=== PATIENT | female | born 1945 | race Caucasian/White ===

== ENCOUNTER 2017-01-20 22:43 | Emergency (ER) | payer MEDICARE, OTHER ==
[~2017-01-20] VITALS: Ht 162.6 cm; Wt 81.6 kg
[~2017-01-20 22:43] MED LIST: ALBUTEROL2 PUFFS/17 IN; ALLOPURINOL100 MG PO; BAYER ASPIRIN C81 MG PO; CLARITIN 10MG T10 MG PO; FUROSEMIDE 20MG20 MG PO; ISOSORBIDE MONO30 MG PO; KEFLEX 500MG.500 MG PO; LISINOPRIL/HCTZ1 TA3 FT; MEDROL 4MG. DOSE4 MG PO; MUCINEX1200 MG PO; NORVASC 10MG. T10 MG PO; PATANOL 5 ML5 ML OP; PERCOCET 325 MG1 TA3 PO; PLAVIX 75MG TAB75 MG PO; RANITIDINE75 MG PO; SALMETEROL-F28 PUFF1 IN; TYLENOL325 MG PO; VENTOLIN H0.09 MG/Ac IH
[2017-01-20] MEDS ORDERED: CIPROFLOXACIN500 M2 PO (22:54)
[2017-01-20] MEDS ORDERED: METRONIDAZOLE500 M2 PO (22:55)
--- OUTSIDE RECORDS SUMMARY | 2017-01-20 23:01 | External Medical Summary Rpt | CCD ---
Author Author Conduent Organization Con[employer] Address Unknown Phone Unavailable Purpose Continuity of Care Document - through 2016
--- OUTSIDE RECORDS SUMMARY | 2017-01-20 23:01 | External Medical Summary Rpt | CCD ---
Author Author , ERIC REYES Address Unknown Phone [email or web address] Support Name Relationship Address Phone FREIDA Next Of Kin [address]SON [phone] [facility] [address] Purpose Continuity of Care Document - 11-10-2012 through 2016 Problems Code Diagnosis DOS Provider Status N18.3 CHRONIC KIDNEY DISEASE, STAGE 3 (MODERATE) Z01.818 ENCOUNTER FOR OTHER PREPROCEDUR AL EXAMINATION Allergies, Adverse Reactions, Alerts Type Drug Allergy Adverse Reaction to Substance Substance Reaction Severity Penicillin P-[id number]-EDBN/THROAT Severe Medications Na ND Rx Da Fi Fi Am Da Di Ph RX Ph St me C No te ll ll ou ys ag ar # ys at rm s nt no ma ic us Or Da si cy ia de te s n re d NI 00 09 0 No TR 28 -2 O- 10 0- Lo BI 32 20 ng D 60 13 er 2% 8 Ac OI ti NT ve ME NT Vital Signs 11-10-2012 13:15 Name Value Interpretat Reference Comment ion Range Body 98.4 [degF] Temperature BP 75 mm[Hg] Diastolic BP Systolic 161 mm[Hg] Heart 103 /min Rate/Pulse O2% 95 % Respiratory 20 /min Rate 11-10-2012 13:14 Name Value Interpretat Reference Comment ion Range BP 81 mm[Hg] Diastolic BP Systolic 156 mm[Hg] Heart 102 /min Rate/Pulse O2% 91 % Respiratory 18 /min Rate Encounters Encounter Start End Date Code Location Performer Type Date Emergency KENNETH Elliott MD (ER) 3 12:31 3 13:25 [facility]
--- OUTSIDE RECORDS SUMMARY | 2017-01-20 23:01 | External Medical Summary Rpt | CCD ---
Author Author , ERIC REYES Address Unknown Phone [email or web address] Support Name Relationship Address Phone FREIDA Next Of Kin [address] [phone] [facility] [place] [address] Purpose Continuity of Care Document - 11-10-2012 through 2016 Problems Code Diagnosis DOS Provider Status N18.3 CHRONIC KIDNEY DISEASE, STAGE 3 (MODERATE) Z01.818 ENCOUNTER FOR OTHER PREPROCEDUR AL EXAMINATION Allergies, Adverse Reactions, Alerts Type Drug Allergy Adverse Reaction to Substance Substance Reaction Severity Penicillin D-VKEQYY-NSXO/THROAT Severe Medications Na ND Rx Da Fi [...] Elliott MD (ER) 3 12:31 3 13:25 [facility]
--- OUTSIDE RECORDS SUMMARY | 2017-01-20 23:02 | External Medical Summary Rpt | CCD ---
Demographics Preferred Language Irish Marital Status Unknown Pentecostal Affiliation Unknown Race Unknown Ethnic Group Unknown Author Author , ERIC REYES Address Unknown Phone Immunization Unable to retrieve immunization data due to connection failure with Immunization Registry. Please try again later.
--- OUTSIDE RECORDS SUMMARY | 2017-01-20 23:02 | External Medical Summary Rpt ---
Author Author [employer]IC Production, ERIC [employer] Organization [employer] Address Unknown Phone Unavailable Results Basic metabolic panel in Blood Observa Value Referen Units Interpr Notes Date tion ce etation Range Urea 7 - 18 mg/dL High No July 21 nitrogen informati 2016 9:27 [Mass/vol on in AM ume] in source Serum or data Plasma Calcium 8.5 - mg/dL Normal No July 21 [Mass/vol 10.1 informati 2016 9:27 ume] in on in AM Serum or source Plasma data Chloride 98 - 107 mmoL/L Normal No July 21 [Moles/vo informati 2016 9:27 lume] in on in AM Serum or source Plasma data Carbon 21.0 - mmoL/L Low No July 21 dioxide, 32.0 informati 2016 9:27 total on in AM [Moles/vo source lume] in data Serum or Plasma Creatinin 0.55 - mg/dL High No July 21 e 1.02 informati 2016 9:27 [Mass/vol on in AM ume] in source Serum or data Plasma Estimated 59- ML/MIN Low REFERENCE July 21 RANGE: 2017 9:27 glomerula >60 AM r ML/MIN/1. filtratio 73 SQUARE n rate METERSIf (GF this patient is -A merican, then multiply theresult by 1.210. Glucose 74 - 106 mg/dL High No July 21 [Mass/vol informati 2017 9:27 ume] in on in AM Serum or source Plasma data Potassium 3.5 - 5.1 mmoL/L Normal No July 21 informati 2016 9:27 [Moles/vo on in AM lume] in source Serum or data Plasma Sodium 136 - 145 mmoL/L Normal No July 21 [Moles/vo informati 2017 9:27 lume] in on in AM Serum or source Plasma data CBC W Auto Differential panel in Blood Observa Value Referen Units Interpr Notes Date tion ce etation Range Basophils 0 - 0.2 K/MM3 Normal No July 21 informati 2016 9:27 [#/volume on in AM ] in source Blood by data Automated count Basophils 0.1 - 2.0 % Normal No July 21 informati 2016 9:27 leukocyte on in AM s in source Blood by data Automated count Eosinophi 0.0 - 0.4 K/mm3 High No July 21 ls informati 2016 9:27 [#/volume on in AM ] in source Blood by data Automated count Eosinophi 0.1 - % Normal No July 21 ls/100 12.0 informati 2016 9:27 leukocyte on in AM s in source Blood by data Automated count Granulocy 1.8 - 7.8 K/mm3 High No July 21 ronda informati 2016 9:27 [#/volume on in AM ] in source Blood by data Automated count Granulocy 37.0 - % Normal No July 21 ronda/100 80.0 informati 2016 9:27 leukocyte on in AM s in source Blood by data Automated count Hematocri 37.0 - % Normal No July 21 t [Volume 47.0 informati 2016 9:27 on in AM Fraction] source of Blood data Hemoglobi 12.2 - g/dL Low No July 21 n 16.2 informati 2016 9:27 [Mass/vol on in AM ume] in source Blood data Lymphocyt 0.7 - 4.5 K/mm3 Normal No July 21 es informati 2016 9:27 [#/volume on in AM ] in source Unspecifi data ed specimen by Automated count Lymphocyt 10 - 50.0 % Normal No July 21 es informati 2016 9:27 [#/volume on in AM ] in source Unspecifi data ed specimen by Automated count Erythrocy 27 - 31.2 pg Normal No July 21 te mean informati 2016 9:27 corpuscul on in AM ar source hemoglobi data n [Entitic mass] Erythrocy 31.8 - g/dl Low No July 21 te mean 35.4 informati 2016 9:27 corpuscul on in AM ar source hemoglobi data n concentra tion [Mass/vol ume] by Automated count Erythrocy 82.2 - fl Normal No July 21 te mean 97.8 informati 2016 9:27 corpuscul on in AM ar volume source [Entitic data volume] by Automated count Monocytes 0.1 - 1.0 K/mm3 Normal No July 21 informati 2017 9:27 [#/volume on in AM ] in source Blood by data Automated count Monocytes 1.7 - 9.3 % Normal No July 21 / informati 2017 9:27 leukocyte on in AM s in source Blood by data Automated count Platelet 7.4 - fl Low No July 21 mean 10.4 informati 2017 9:27 volume on in AM [Entitic source volume] data in Blood by Automated count Platelets 142 - 424 K/mm3 Normal No July 21 informati 2017 9:27 [#/volume on in AM ] in source Blood data Erythrocy 4.2 - 5.4 M/mm3 Low No July 21 ronda informati 2017 9:27 [#/volume on in AM ] in source Amniotic data fluid Erythrocy 11.5 - % Normal July 21 te 17.5 informati 2017 9:27 distribut on in AM ion width source [Entitic data volume] by Automated count Leukocyte 4.8 - K/MM3 High No July 21 s 10.8 informati 2016 9:27 [#/volume on in AM ] in source Blood data
--- OUTSIDE RECORDS SUMMARY | 2017-01-20 23:02 | External Medical Summary Rpt | CCD ---
Demographics Preferred Language Romansh Marital Status Unknown Quaker Affiliation Unknown Race Unknown Ethnic Group Unknown Author Author , ERIC REYES Address Unknown Phone Immunization Unable to retrieve immunization data due to connection failure with Immunization Registry. Please try again later.
[2017-01-20 23:04] LABS: LYMPH # 2.6 K/mm3 (0.7-4.5); LYMPH % 11.9 % (10-50.0)
[2017-01-20 23:08] LABS: HEMOGLOBIN 13.4 g/dL (12.2-16.2)
[2017-01-20 23:39] LABS: NEUTROPHILS 80 % (42-76)
--- NOTE | 2017-01-20 23:50 | Emergency Room Report ---
History of Present Illness Time Seen by [id number] Presenting Problem in Triage Pt arrived:Walked Presenting Problem:C/O ABDOMINAL PAIN FOR [address] CORDON AND DX WITH DIVERTICULITIS. ON Tuesday01/15/17 Onset of symptoms date/time:/ or onset unknown for:MEDICAL HX UNKNOWN Treatment Prior to Arrival: [employer]SEL[employer] Provided by: Sepsis Risk Assessment: Temp: 98.4 B/P: 114/92 MAP: 99 Pulse: 127 Resp: 20 Recent fever? N Clinical Suspician of Infection? N Mental Status: 1 - Regular (Normal Baseline) Sepsis Risk:Possible Sepsis Risk Have you (or family members/close friends) recently traveled outside the [place]? N If Yes, where/when: Have you had exposure to infectious disease within the past month? N TB? Other? Specify: Source patient, RN notes reviewed, family, old records Exam Limitations no limitations Comment pt with abd pain since last weekend - pt with abx and has abd pain with crampy pain with nonbldy diarrhea with no fever - worse tonight Cardiac Chest Pain Chest pain indicative of cardiac No Timing/Duration this evening Severity moderate ALLERGIES Coded Allergies: Penicillins (SWELLING 08/19/16) Sulfa (Sulfonamide Antibiotics) (ITCHING 08/19/16) Home Medications Reported Medications AMLODIPINE BESYLATE (Norvasc) 10 MG PO DAILY Lisinopril & Hctz (Lisinopril-Hctz 10-12.5 MG Tab) 1 TAB FT DAILY CLOPIDOGREL BISULFATE (PLAVIX) 75 MG PO DAILY Aspirin (Uma Chewable Aspirin) 81 MG PO DAILY Albuterol (Albuterol Inhaler 17GM) 2 PUFFS IN BID #1 INH Salmeterol 50/Fluticasone 500 (Advair 500-50 Diskus) 1 PUFF IN BID Acetaminophen (Tylenol) 650 TAB PO NEEDED MISCELLANEOUS (UNKNOWN MEDICATION) RANITIDINE HCL (Ranitidine HCl) 75 MG PO QHS Isosorbide Mononitrate (Isosorbide Mononitrate ER) 30 MG PO DAILY #90 Furosemide (Furosemide) 20 MG PO DAILY #90 OLOPATADINE HCL (Patanol 5 Ml) 5 ML OP DAILY #15 CIPROFLOXACIN HCL (Ciprofloxacin HCl) 500 MG PO BID #20 Metronidazole 500 MG PO Q 8 HOURS #30 Albuterol Sulfate (Ventolin Hfa) 0.09 MG IH PRN PRN BREATHING #54 Allopurinol 100 MG PO DAILY #90 Loratadine (Claritin 10MG) 10 MG PO DAILY #90 History Medical History General CAD? Yes Angina: No OR: No Hypertension? Yes Hyperlipidemia? Yes CHF? No DVT? No PE? No COPD? Yes Asthma? Yes Anemia? No GERD? No Gastric ulcers? No GI Bleed? No Hernia? No Thyroid Problems? No Hypothyroidism? No CVA? No Seizures? No Diabetes? No Renal Insuffiency? Yes End Stage Renal Disease? No UTI? Yes Stones? No GB Disease: Yes Nephritic Syndrome? No Asplenia? No Hepatitis? No Sickle Cell Disease? No Arthritis? No Migraines? No Cataracts? Yes Glaucoma? No MRSA? No HIV? No TB? No Anxiety? No Depression? No Cancer? No More? Yes Additional hx: "STAGE 3 KIDNEY DISEASE" Immunization Hx DT/Tetanus > 10 YRS Flu 2011-FSN Pneumonia Received In Past Surgical Hx Previous Surgery?Y GALBLADDER BREAST SURGERY 2 HEART CATHS WITH STENTS WITH FIRST PROCEDURE Family History Family Hx Diabetes No CAD Yes Hypertension Yes Hyperlipidemia Yes Cancer No TB No Social History Smoking Hx Smoker: Never Smoker Tobacco: No Packs/day < 1 Pack Alcohol Alcohol: No Drugs none Review of Systems All Other Systems Reviewed and Negative Constitutional denies fever Eyes denies drainage ENT denies: ear discharge, epistaxis, throat pain. Respiratory denies cough, denies shortness of breath, denies wheezing Cardiovascular denies chest pain, denies syncope Gastrointestinal see HPI, abdominal pain, diarrhea, nausea, denies vomiting Genitourinary denies: dysuria, frequency, hesitancy, hematuria. Musculoskeletal denies back pain, denies joint swelling, denies neck pain Skin denies rash Psychiatric/Neurological denies headache, denies seizure Physical Exam Vital Signs Vital Signs Date Time Temp Pulse Resp B/P Pulse O2 O2 Flow FiO2 Ox Delivery Rate 01/21 0153 106 20 102/53 98 01/20 2247 98.4 127 20 114/92 100 - WBC >12,000 or <4,000 or 10% bands? 2 or more SIRS Criteria Met? B/P:102/53 MAP:99 Creatinine >2.0? UA output<0.5ml/kg/hr for 2 hrs? Platelet count >100,000? Lactate >2.0mmol/1? INR >1.2 or PTT > than 60 sec? Evidence of Organ Dysfunction? Provider documented clinical suspician of infection? N Sepsis Criteria Count: 2 Sepsis Risk: Possible Sepsis Risk General Appearance no apparent distress Eye Exam - bilateral eye PERRL, bilateral eye EOMI Ear, Nose, Throat normal ENT inspection Neck supple Respiratory Status No: respiratory distress. Lung Sounds bilateral: lungs clear. Cardiovascular regular rate/rhythm, systolic murmur Peripheral Pulses Pulses normal Yes Gastrointestinal soft, no organomegaly, no pulsatile mass, no guarding, no rebound, tenderness Back no CVA tenderness Extremities normal inspection Strength 4 Upper Ext (L), 4 Upper Ext (R), 4 Lower Ext (L), 4 Lower Ext (R) Neurologic alert, stave mill hand II-XII nml as tested, no motor/sensory deficits Reflexes Reflexes normal No Mental status normal mood/affect Skin intact Medical Decision Making LABS/Meds/Orders Pt receiving controlled substance in ED? No Results/Orders Laboratory Tests 01/21/17 0000: Lactic Acid 1.8, ESR >120 H 01/20/17 2352: Stl Aeromonas (PCR) NOT DETECTED, Stl Cyclospora species NOT DETECTED, Stool Rotavirus (PCR) NOT DETECTED, Stool Astrovirus (PCR) NOT DETECTED, Stool Campylobacter PCR NOT DETECTED, Stool Cryptosporidium PCR NOT DETECTED, Stl E. histolytica PCR NOT DETECTED, Stool Giardia Lamblia PCR NOT DETECTED, Stl P. shigelloides PCR NOT DETECTED, Stool Sapovirus (PCR) NOT DETECTED, Stool Vibrio (PCR) NOT DETECTED, Stl Vibrio cholerae PCR NOT DETECTED, Stl Norovirus GI/GII PCR NOT DETECTED, Adenovirus (PCR) NOT DETECTED, C. difficile Tox (PCR) NOT DETECTED, E. coli (PCR) NOT DETECTED, Salmonella (PCR) NOT DETECTED, Yersinia ( PCR) NOT DETECTED 01/20/17 1369: Sodium 136, Potassium 4.0, Chloride 98, Carbon Dioxide 25, BUN 51 H, Creatinine 3.1 H, Estimated Creat Clear 21 L, Estimated GFR (MDRD) 15 *L, Glucose 133 H, Calcium 10.1, Total Bilirubin 0.5, AST 17, ALT 20, Alkaline Phosphatase 60, Total Protein 7.9, Albumin 3.6, Globulin 4.3 H, Albumin/Globulin Ratio 0.8 L, Amylase 110, Lipase 240, WBC 22.1 *H, RBC 4.56, Hgb 13.4, Hct 41.9, MCV 91.9, RDW 15.0, Plt Count 257, MPV 8.5, Gran % 81.3 H, Gran # 18.0 H, Total Counted 100, Lymphocytes % 11.9, Monocytes % 3.9, Eosinophils % 2.6, Basophils % 0.2, Neutrophils 80 H, Lymphocytes (Manual) 18, Lymphocytes # 2.6, Monocytes (Manual ) 1 L, Monocytes # 0.9, Eosinophils # 0.6 H, Eosinophils # (Manual) 1, Basophils # 0.1, Platelet Estimate NORMAL, Anisocytosis 1+, Acanthocytes (Spur) 1+, PUBS MCHC 32.0, MCH 29.4 Current Medication Orders Sig/Raghav Start time Last Medication Dose Route Stop Time Status Admin Acetaminophen/ 0 .STK-MED ONE 01/21 0216 DC Codeine Phosphate PO Sodium Chloride 10 ML PRN PRN 01/20 2300 AC IV 01/21 2257 Sodium Chloride 1,000 ML .Q1H1M 01/20 2300 DC 01/20 IV 01/21 0000 2301 Sodium Chloride 10 ML PRN PRN 01/20 2300 AC IV 01/21 2257 Sodium Chloride 1,000 ML .STK-MED ONE 01/20 230 DC IV Orders Procedure Date/time Status DIET-NOTHING BY MOUTH 01/21 B Active SED RATE 01/21 0111 Complete LACTIC ACID 01/20 2356 Complete DIARRHEA PANEL, PCR 01/[address] ABD & PELVIS W/O CONTRAST 01/20 2259 Active DIFFERENTIAL-WBC 01/20 2259 Complete URINALYSIS/COMPLETE 01/[address] ABD/PELVIS REQ 01/20 2257 Complete IV SALINE LOCK 01/20 2257 Active LIPASE 01/20 2257 Complete CBC WITH AUTO DIFF 01/20 2257 Complete CHEM 12 PROFILE 01/20 2257 Complete AMYLASE 01/20 2257 Complete XRAY/CT/US XRAY/CT/US CT abdomen, pelvis CT interpretation by discussed w/radiologist Time results known: 021 CT Results abnormal (nonspecific) Departure Departure Time of Disposition 0208 Disposition DC Home or Self Care(routine) Clinical Impression Primary Impression: Abdominal pain Qualifiers: Abdominal location: generalized Qualified Code: R10.84 - Generalized abdominal pain Secondary Impressions: Leukocytosis Qualifiers: Leukocytosis type: unspecified Qualified Code: D72.829 - Elevated white blood cell count, unspecified Renal insufficiency Condition STABLE Referrals Cordell Cordon MD (Family) discussed with dr cordon Patient Instructions DI for Abdominal Pain-Adult Additional Instructions see dr cordon in am Discharge Counseling Counseled pt/family regarding diagnosis, test results, medications/RX, follow up needs ED Critical Care Critical Care No Comments pt declined cxr and admit at 022
[2017-01-20 23:56] LABS: AEROMONAS NOT DETECTED (NOT DETECTE); ASTROVIRUS NOT DETECTED (NOT DETECTE); CYCLOSPORA CAYETANENSIS NOT DETECTED (NOT DETECTE); E COLI O157 NOT DETECTED (NOT DETECTE); ENTEROAGGREGATIVE E COLI NOT DETECTED (NOT DETECTE); ENTEROPATHOGENIC E COLI NOT DETECTED (NOT DETECTE); ENTEROTOXIGENIC E COLI NOT DETECTED (NOT DETECTE); NOROVIRUS NOT DETECTED (NOT DETECTE); SAPOVIRUS NOT DETECTED (NOT DETECTE); SHIGA-LIKE TOXIN PROD. E COLI NOT DETECTED (NOT DETECTE); SHIGELLA/ENTEROINVASIVE E COLI NOT DETECTED (NOT DETECTE); VIBRIO CHOLERAE NOT DETECTED (NOT DETECTE)
[2017-01-21 02:25] VITALS: BP 102/53
--- NOTE | 2017-01-21 06:15 | RADIOLOGY REPORT PS360 ---
CT ABD PELVIS W/O CONTRAST CLINICAL INDICATION: Generalized abdominal pain ABD PAIN ORDERING PHYSICIAN: Penny Ferreira MD PATIENT AGE: 71 years COMPARISON: None TECHNIQUE: Axial images obtained with sagittal and coronal reformats. PROCEDURE: Oral Contrast: None IV Contrast: None . FINDINGS: There is an incompletely area of consolidation or mass within the right middle lobe in the region of the major fissure and the right hilum. This is contiguous with the right hilum in the major fissure measures at least 5 cm in transverse dimension. This extends to the right hilum and is associated with thickening in the inferior aspect of the major fissure. This may the represent mass or dense consolidation with some fluid in the fissure. Dedicated CT of the chest recommended for further evaluation. The right middle lobe bronchus may be occluded. In addition there is a 6 mm nodule in the left lower lobe noncalcified. There are coronary artery calcifications. The liver, spleen, and right adrenal gland are unremarkable. 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 The pancreas is unremarkable. No renal calculi or hydronephrosis. There is mild stranding in the right perinephric renal fat and there is a 3 cm cyst projecting from the right kidney laterally. As been a prior cholecystectomy. Fluid-filled loops of small and large bowel are present with scattered air-fluid levels which may be seen with gastroenteritis/ileus. No evidence of appendicitis or diverticulitis. There is diverticulosis of the sigmoid colon. Degenerative changes are present within the spine and hips. IMPRESSION: 1. Right upper/right middle lobe mass suspicious for neoplasm. Dense consolidation is also a consideration. Small amount fluid is present in the major fissure. Recommend chest CT with contrast for further evaluation. 2. 6 mm left lower lobe nodule. 3. Coronary artery disease. 4. Diverticulosis of the sigmoid colon. No evidence of diverticulitis. 5. No acute intra-abdominal or pelvic pathology
== END 2017-01-21 02:27 | disposition home or self-care (01) ==
LOC: ER 22:43
PROVIDERS: Emergency Medicine
DX: R10.84 Generalized abdominal pain (principal); N28.9 Disorder of kidney and ureter, unspecified; D72.829 Elevated white blood cell count, unspecified; N18.3 Chronic kidney disease, stage 3 (moderate); I10 Essential (primary) hypertension; E78.5 Hyperlipidemia, unspecified; J44.9 Chronic obstructive pulmonary disease, unspecified; I25.10 Atherosclerotic heart disease of native coronary artery without angina pectoris; Z88.0 Allergy status to penicillin; Z88.2 Allergy status to sulfonamides

== ENCOUNTER → 2017-01-31 | Outpatient (CLI) | payer MEDICARE, OTHER ==
[~2017-01-31] MED LIST changes: +CIPROFLOXACIN500 M2 PO; +METRONIDAZOLE500 M2 PO
[2017-01-31 12:38] LABS: BUN 17 mg/dL (7-18); GFR (ESTIMATED) 37 ML/MIN (59-)
--- NOTE | 2017-02-02 05:33 | RADIOLOGY REPORT PS360 ---
CT CHEST W/WO CONTRAST HISTORY: RT UPPER AND RT MIDDLE LOBE MASS, FLUID IN MAJOR FISSURE ORDERING PHYSICIAN: Cordell Whittaker MD PATIENT AGE: 71 years TECHNIQUE: Helical acquisition obtained without and following the intravenous administration of 75 mL of Isovue 370 .. Axial, sagittal, and coronal reformatted images are generated and reviewed. COMPARISON: Abdomen CT of 01/20/2017 FINDINGS: There is a large mass in the right hilum which measures at least 6.8 x 7 x 4 cm. There is peripheral consolidation of the right middle lobe distal to the mass. This is highly suspicious for neoplasm with postobstructive pneumonitis. The dimensions of the mass are somewhat difficult to measure due to the overlying peripheral lung consolidation. There is occlusion of the right middle lobe bronchus. There is also narrowing of the right lower lobe bronchi from external compression of the mass. There is an enlarged lymph node in the subcarinal region on the right measuring 2 x 3.3 cm. This evie areas medial to the right bronchus intermedius. There is a small right pleural effusion. There are centrilobular emphysematous changes. There is a 9 mm noncalcified nodule in the left upper lobe and a 6 mm noncalcified nodule in the left lower lobe. There are mild atheromatous changes of the aorta. There are coronary artery calcifications with normal heart size. No pericardial effusion. Left adrenal gland is slightly enlarged but maintains an adreniform shape. No acute bony anomalies. No obvious bony destructive process. IMPRESSION: 1. 7 cm right hilar mass with occlusion of the right mainstem bronchus and postobstructive pneumonitis of the right middle lobe as well as subcarinal adenopathy. This is consistent with bronchogenic carcinoma with mediastinal adenopathy 2. Small right pleural effusion. 3. At least 2 nodules on the left one in the left upper lobe 9 mm and one in the left lower lobe. These are nonspecific and follow-up is suggested as metastasis cannot be excluded. 4. Centrilobular emphysema. 5. Coronary artery disease
== END ==
LOC: RAD 12:19
PROVIDERS: Family Medicine
DX: R91.8 Other nonspecific abnormal finding of lung field (principal)
CPT/HCPCS: Q9967